=== PATIENT | female | born 1950 | race Caucasian/White ===

== ENCOUNTER 2016-07-20 15:01 | Emergency (ER) | payer OTHER ==
[~2016-07-20 15:01] MED LIST: CELEBREX200 MG PO; IBUPROFEN200 M1 PO; LEVAQUIN500 MG PO; NICOTINE T21 MG/24 H TOP; TYLENOL325 MG PO; ULTRAM EQIVALEN50 MG PO
--- NOTE | 2016-07-20 18:40 | ED ORDER SUMMARY ---
..... Patient: BISHNU MIRANDA OrderSheet [facility] VisitID: [id number] [place] [address] 66y, F Registration Date/Time: 07/20/2016 ORDER SHEET Weight: 71.6 kg (stated) Allergies: No Known Drug Allergy GENERAL ORDERS: BMP Urgent (16:36 07/20/2016 EInderbitzen R.N. verbal order read back to Aimee Pedro) (Cancelled: Physician Order16:38 EInderbitzen R.N.) Type & Screen Urgent (16:36 07/20/2016 EInderbitzen R.N. verbal order read back to Aimee Pedro) (Ack 16:44 IAouse ER Tech1) (17:27 IAouse ER Tech1) PT with INR Urgent (16:36 07/20/2016 EInderbitzen R.N. verbal order read back to Aimee Pedro) (Ack 16:44 IAouse ER Tech1) (17:27 NHouse ER Tech1) CMP Urgent (16:38 07/20/2016 EInderbitzen R.N. verbal order read back to Aimee Pedro) (Ack 16:44 IAouse ER Tech1) (17:27 NHouse ER Tech1) Liver Function Panel Urgent (16:38 07/20/2016 EInderbitzen R.N. verbal order read back to Aimee Pedro) (16:43 Aimee Pedro) (Cancelled: Physician Order16:43 Aimee Pedro) (Ack 16:44 IAouse ER Tech1) CBC w Diff Urgent (16:44 07/20/2016 Aimee Pedro) (Ack 16:46 IAouse ER Tech1) (17:27 NHouse ER Tech1) MEDICATION ORDERS: Vit K Subcut 5 mg (NOW) (17:39 07/20/2016 Aimee Pedro) (17:50 EInderbitzen R.N.) IV FLUIDS: IV Saline Lock (16:36 07/20/2016 EInderbitzen R.N. verbal order read back to Aimee Pedro) (16:53 EInderbitzen R.N.) ORDER SHEET NOTES: [Electronically signed by Sera Merrill R.N. (:07/20/2016)] [Electronically signed by Max Barger Dr. (22:18 07/20/2016)] [Electronically locked/signed by Sera Merrill R.N. (:07/20/2016)]
--- NOTE | 2016-07-20 18:40 | ED CLINICAL REPORT ---
Clinical Report - Physicians/[facility] [address] [place] [address] 07/20/2016 15:02 Patient: BISHNU MIRANDA Time Seen: 16:42; initial patient contact. Arrived- By private vehicle. Historian- patient. HISTORY OF PRESENT ILLNESS Chief Complaint: ABNORMAL INR. ( Called by PCP last night, INR > 13. Was started on Coumadin last month for LLE DVT.). At its maximum, severity described as severe. When seen in the E.D., severity described as severe. Modifying factors. Not worsened by anything. Not relieved by anything. This started last night and is still present. No loss of appetite, weight loss, headache or visual disturbance. Similar symptoms previously: None. Recent medical care: Not recently seen/assessed. REVIEW OF SYSTEMS No fever or chills. All systems otherwise negative, except as recorded above. PAST HISTORY Pleurisy. Tendonitis. Meningitis. Lung mass, not cancer. DVT SURGERIES: Appendectomy. Tonsillectomy. SOCIAL HISTORY Current every day smoker. No alcohol use or drug use. ADDITIONAL NOTES The nursing notes have been reviewed with agreement regarding the chief complaint, PMH and patient medications and allergies. PHYSICAL EXAM Vital Signs: 07/20/2016 15:55 BP: 104/57. HR: 103. RR: 18. O2 saturation: 97%. Temp: 98.2 F. Pain level now: 0/10. Have been reviewed. Hypotensive. Tachycardic. Respiratory rate normal. Temperature normal. Oxygen saturation normal. Appearance: Alert. No acute distress. Eyes: Pupils equal, round and reactive to light. Eyes normal inspection. ENT: Pharynx normal. CVS: Normal heart rate and rhythm. Heart sounds normal. Respiratory: No respiratory distress. Breath sounds normal. Abdomen: No visible injury. Soft and nontender. Bowel sounds normal. Skin: Skin warm and dry. Normal skin color. Extremities: No calf tenderness. No lower extremity edema. Neuro: Oriented X 3. No motor deficit. LABS, X-RAYS, AND EKG Laboratory Tests: CBC w Diff: (MP: 07/20/2016 16:45) ( Mscvd 07/20/2016 16:57) Final results Test Result Flag Units (Reference) WHITE BLOOD COUNT 9.8 K/uL (4.5-11.5) RED BLOOD COUNT 5.05 M/uL (4.00-5.20) HEMOGLOBIN 15.3 gm/dL (12.0-16.0) HEMATOCRIT 46.8 H % (36.0-46.0) MEAN CELL VOLUME 93 fL (80-100) MEAN CORPUSCULAR HGB 30 pg (26-34) MEAN CORPUSCULAR HGB CONC 33 g/dL (31-37) RED CELL DISTRIBUTION WIDTH 13.5 % (11.6-14.8) PLATELET COUNT 424 H K/uL (150-400) NEUTROPHIL % 73.4 % (50-75) LYMPH % 16.5 L % (25-40) MONO % 8.4 % (3-14) EOSINOPHIL % 1.1 % (0-4) BASOPHIL % 0.6 % (0-2) PT with INR: (MP: 07/20/2016 16:45) ( MsgRcvd 07/20/2016 17:26) Final results Test Result Flag Units (Reference) INR 14.1 *H (0.8-1.2) CRITICAL RESULTS CALLEDCalled to Hernandez MEHTA 07/20/16 1725Were 2 patient identifiers used? YWas the result read back? YLow Intensity Therapy: INR 1.5-2.0 PT range 18.5-23.1Mod.Intensity Therapy: INR 2.0-3.0 PT range 23.1-31.5High Intensity Therapy: INR 2.5-3.5 PT range 27.4-35.5High Intensity Therapy 2: INR 3.0-4.0 PT range 31.5-39.3 CMP: (MP: 07/20/2016 16:45) ( MsgRcvd 07/20/2016 17:18) Final results Test Result Flag Units (Reference) GLUCOSE 89 mg/dL (70-110) BUN 9 mg/dL (7-18) CREATININE 0.7 mg/dL (0.6-1.3) Estimated GFR >60 mL/min Estimated GFR- >60 mL/min Note: Persistent reduction over 3 months in eGFR<60 mL/min/1.73 m2 defines CKD. Patients with eGFR values>=60 mL/min/1.73 m2 may also have CKD if evidence ofpersistent proteinuria. Additional information may be foundat www.kidney.org. SODIUM 137 mmol/L (136-145) POTASSIUM 4.2 mmol/L (3.5-5.1) CHLORIDE 99 mmol/L (98-107) CARBON DIOXIDE 31 mmol/L (21-32) CALCIUM 9.4 mg/dL (8.5-10.1) TOTAL PROTEIN 8.0 g/dL (6.4-8.2) ALBUMIN 2.9 L g/dL (3.3-5.0) BILIRUBIN, TOTAL 0.5 mg/dL (0.0-1.0) ALKALINE PHOSPHATASE 115 U/L (46-116) AST (SGOT) 37 U/L (15-37) ALT (SGPT) 23 U/L (12-78) Type & Screen: (MP: 07/20/2016 16:45) ( MsgRcvd 07/20/2016 18:19) Final results Test Result Flag Units (Reference) PATIENT BLOOD TYPE A Positive Above is a corrected result. Previously reported on ( MsgRcvd 07/20/2016 18:03) as: PATIENT BLOOD TYPE A Positive ANTIBODY SCREEN NEGATIVE . PROGRESS AND PROCEDURES Course of Care: 07/20/2016 17:00 BP: 106/74. HR: 88. RR: 16. O2 saturation: 100%. Pain level now: 0/10. Vital Signs: have been reviewed as normal. Disposition: Discharged home in good condition. Condition: good. CLINICAL IMPRESSION Oral anticoagulation therapy with high INR. INSTRUCTIONS Your Current Medications: STOP TAKING THE FOLLOWING MEDICATIONS: Warfarin Sodium Oral. CONTINUE TAKING THE FOLLOWING MEDICATIONS: HYDROcodone Bitartrate ER Oral. Tramadol HCL Oral. Follow-up: Follow up with your doctor tomorrow. Call for an appointment. Screening today revealed the patient's blood pressure to be in the normal range. (Electronically signed by Max Barger Dr. 07/20/2016 22:18)
--- NOTE | 2016-07-20 18:40 | ED ORDER SUMMARY ---
..... Patient: BISHNU MIRANDA OrderSheet [facility] VisitID: [id number] [place] [address] 66y, F Registration Date/Time: 07/20/2016 ORDER SHEET Weight: 71.6 kg (stated) Allergies: No Known Drug Allergy GENERAL ORDERS: BMP Urgent (16:36 07/20/2016 EInderbitzen R.N. verbal order read back to Aimee Pedro) (Cancelled: Physician Order16:38 EInderbitzen R.N.) Type & Screen Urgent (16:36 07/20/2016 EInderbitzen R.N. verbal order read back to Aimee Pedro) (Ack 16:44 TNouse ER Tech1) (17:27 TNouse ER Tech1) PT with INR Urgent (16:36 07/20/2016 EInderbitzen R.N. verbal order read back to Aimee Pedro) (Ack 16:44 TNouse ER Tech1) (17:27 NHouse ER Tech1) CMP Urgent (16:38 07/20/2016 EInderbitzen R.N. verbal order read back to Aimee Pedro) (Ack 16:44 TNouse ER Tech1) (17:27 NHouse ER Tech1) Liver Function Panel Urgent (16:38 07/20/2016 EInderbitzen R.N. verbal order read back to Aimee Pedro) (16:43 Aimee Pedro) (Cancelled: Physician Order16:43 Aimee Pedro) (Ack 16:44 TNouse ER Tech1) CBC w Diff Urgent (16:44 07/20/2016 Aimee Pedro) (Ack 16:46 TNouse ER Tech1) (17:27 NHouse ER Tech1) MEDICATION ORDERS: Vit K Subcut 5 mg (NOW) (17:39 07/20/2016 Aimee Pedro) (17:50 EInderbitzen R.N.) IV FLUIDS: IV Saline Lock (16:36 07/20/2016 EInderbitzen R.N. verbal order read back to Aimee Pedro) (16:53 EInderbitzen R.N.) ORDER SHEET NOTES: [Electronically signed by Sera Merrill R.N. (:07/20/2016)] [Electronically signed by Max Barger Dr. (22:18 07/20/2016)] [Electronically locked/signed by Sera Merrill R.N. (:07/20/2016)]
--- NOTE | 2016-07-20 18:40 | ED NURSING NOTES ---
Clinical Report - Nurses [facility] [address] [place] [address] 07/20/2016 15:02 Patient: BISHNU MIRANDA TRIAGE Triage time 15:55 Jul 20 2016. Acuity: LEVEL 3. Chief Complaint: (inr greater than 13). 16:00 07/20/16. SEPSIS SCREEN: Sepsis Screen: negative. Negative (no infection suspected/documented). --16:02 Sera Merrill R.N. 15:55 07/20/16. BP: 104/57. HR: 103. RR: 18. O2 saturation: 97%. Temp: 98.2 F. Pain level now: 0/10. --16:02 Sera Merrill R.N. Weight: 71.6 kg stated. Height/Length: 66 inches Per Patient. BMI: 25.5. --15:54 Sera Merrill R.N. Medications Tramadol HCL Oral. --16:01 Sera Merrill R.N. HYDROcodone Bitartrate ER Oral. --16:01 Sera Merrill R.N. Warfarin Sodium Oral. --16:02 Sera Merrill R.N. Allergies No Known Drug Allergy. --16:00 Sera Merrill R.N. Medication/allergy information source: the patient. --16:02 Sera Merrill R.N. History Arrived by private vehicle. Historian: patient. Accompanied by family. This started today. ( last dose of coumadin last night. started coumadin 07/05 for DVT. Initally on Lovenox.). Treatment PHARMACOVIGILANCE SPECIALIST: None. PAST MEDICAL HX: Immunizations: seasonal influenza. Has not received pneumonia vaccine. SOCIAL HX: Heavy tobacco smoker (cigarette)- less than 1 pack per day. No alcohol use or drug use. No infectious disease exposure. ABUSE ASSESSMENT: No report of abuse. SELF HARM ASSESSMENT: A self harm assessment was performed. The patient answered "no" to the question "Have you recently felt down, depressed, or hopeless?", "Have you noticed less interest or pleasure in doing things?", "Do you have thoughts of harming or killing yourself?", "Are you here because you tried to hurt yourself?", "Have you ever tried to hurt yourself before today?", "Have you recently had thoughts about harming or killing others?" and "Do you have any dangerous items in your possession?". --16:02 Sera Merrill R.N. PROBLEMS: Pleurisy. Tendonitis. Meningitis. --16:00 Sera Merrill R.N. Lung mass, not cancer. --16:02 Sera Merrill R.N. ADDITIONAL SURGERIES: Appendectomy. Tonsillectomy. --16:00 Sera Merrill R.N. Interventions ID band on patient. --16:02 Sera Merrill R.N. PHYSICAL ASSESSMENT 15:55 07/20/16. Ambulatory to room. GENERAL / NEURO / PSYCH: Alert. Oriented X 4. Appears in no acute distress. HEENT: Pupils equal, round and reactive to light. No facial asymmetry noted. Mucous membranes are pink. RESPIRATORY: Respirations not labored. Breath sounds within normal limits. CVS: Pulses within normal limits. GI / : Abdomen soft and nontender and normal bowel sounds. SKIN: Skin intact. Skin is warm and dry. Normal skin turgor. --16:52 Sera Merrill R.N. NURSING PROGRESS NOTES 15:55 07/20/16. The initial plan of care for this patient includes an assessment with efforts to address additional testing; educational needs of the patient regarding the patient's medications. This plan of care was discussed with the patient. Reassurance given. Two patient identifiers checked. Call light placed in reach. Side rails up x 1. Bed placed in lowest position. Brakes of bed on. Patient ready for evaluation. --16:52 Sera Merrill R.N. 16:45 07/20/2016 Site #1 started via IV in the left hand with an 20g angiocath, with aseptic technique and good blood return; one attempt. Blood drawn: rainbow set. Labeled in the presence of the patient and sent to the lab. Saline lock flushed with 10 mL saline. --16:51 Sera Merrill R.N. 17:26 07/20/16. Critical value relayed to ED by Barron. Critical value received by Terence. INR: 14.1. Critical value read back. Verified lab result and patient ID. ED physician notifed of critical value. Orders were received. --17:26 Sera Merrill R.N. 17:50 07/20/2016 Vit K (Vitamin K1) Subcutaneous 5 mg given. Given in the right upper arm. Allergies verified and confirmed 5 rights. --17:50 Sera Merrill R.N. 18:49 07/20/16. The patient is calm. Overall patient status is the same- she states feels the same. Patient waiting for disposition. --18:49 Sera Merrill R.N. DISPOSITION / DISCHARGE 18:55 07/20/2016 Site #1 removed upon admission. Catheter intact. Pressure dressing applied. --18:59 Sera Merrill R.N. 18:57 07/20/16. Condition at departure: improved and stable. The goals identified in the patient's plan of care were met. No learning barriers present. Discharge instructions provided and reviewed with the patient. Reviewed warnings (STOP COUMADIN). Treatments reviewed (Bleeding precautions). Reviewed referral to a primary care physician for followup. Patient verbalized understanding. Written instructions provided in Cymro. The patient was discharged home and accompanied by family. She left the Emergency Department ambulatory and via private vehicle. Family member driving. FALL RISK ASSESSMENT: Fall risk assessment completed. No fall risk identified. --19:00 Sera Merrill R.N. 18:00 07/20/16. BP: 106/64. HR: 88. RR: 16. O2 saturation: 100%. Pain level now: 0/10. 17:00 07/20/16. BP: 106/74. HR: 88. RR: 16. O2 saturation: 100%. Pain level now: 0. 15:55 07/20/16. BP: 104/57. HR: 103. RR: 18. O2 saturation: 97%. Temp: 98.2 F. Pain level now: 010. --19:00 Sera Merrill R.N. Departure time: 19:00 Jul 20 2016. --19:00 Sera Merrill R.N. Locked/Released at 07/20/2016 19:01 by Sera eMrrill R.N.
--- NOTE | 2016-07-20 22:19 | ED MED RECONCILIATION SUMMARY ---
Patient: RUBENBISHNU Medication Reconciliation Report [facility] VisitID: [id number] [address] [place] [address] 66y, F Registration Date/Time: 07/20/2016 Weight: 71.6 kg Height/Length: 66 in. BMI: 25.5 ALLERGIES: No Known Drug Allergy The patient's Home Medications are listed below: STOP TAKING THE FOLLOWING MEDICATIONS: Warfarin Sodium Oral CONTINUE TAKING THE FOLLOWING MEDICATIONS: HYDROcodone Bitartrate ER Oral Tramadol HCL Oral The source(s) of the original Home Medication information: patient The following Medications were given to the patient in the Emergency Department: Vit K [Subcutaneous] Subcutaneous 5 mg, administered: 07/20/2016 5:50:00 PM The following Medications were prescribed to the patient: None.
--- NOTE | 2016-07-20 22:19 | ED MAR SUMMARY ---
..... Medication Administration Record [facility] [address] [place] [address] Patient: BISHNU MIRANDA Visit ID: [id number] 66y, F Weight: 71.6 kg Height/Length: 66 in BMI: 25.5 ALLERGIES: No Known Drug Allergy Given 17:50 07/20/2016 Sera Merrill R.N. Medication Administered: VIT K [SUBCUTANEOUS] (VITAMIN K1), Dose: 5 mg Subcutaneous. Medication Ordered: Vit K Subcut 5 mg (NOW).
--- NOTE | 2016-07-20 22:19 | ED MED RECONCILIATION SUMMARY ---
Patient: RUBENBISHNU Medication Reconciliation Report [facility] VisitID: [id number] [address] [place] [address] 66y, F Registration Date/Time: 07/20/2016 Weight: 71.6 kg Height/Length: 66 in. BMI: 25.5 ALLERGIES: No Known Drug Allergy The patient's Home Medications are listed below: STOP TAKING THE FOLLOWING MEDICATIONS: Warfarin Sodium Oral CONTINUE TAKING THE FOLLOWING MEDICATIONS: HYDROcodone Bitartrate ER Oral Tramadol HCL Oral The source(s) of the original Home Medication information: patient The following Medications were given to the patient in the Emergency Department: Vit K [Subcutaneous] Subcutaneous 5 mg, administered: 07/20/2016 5:50:00 PM The following Medications were prescribed to the patient: None.
--- NOTE | 2016-07-20 22:19 | ED DISCHARGE INSTRUCTIONS ---
Patient: BISHNU MIRANDA General Instructions [facility] VisitID: [id number] [address] [place] [address] 66y, F Registration Date/Time: 07/20/2016 Oral anticoagulation therapy with high INR. INSTRUCTIONS Your Current Medications: STOP TAKING THE FOLLOWING MEDICATIONS: Warfarin Sodium Oral. CONTINUE TAKING THE FOLLOWING MEDICATIONS: HYDROcodone Bitartrate ER Oral. Tramadol HCL Oral. Follow-up: Follow up with your doctor tomorrow. Call for an appointment. Screening today revealed the patient's blood pressure to be in the normal range. (Electronically signed by Max Barger Dr. 07/20/2016 22:18)
--- NOTE | 2016-07-20 22:19 | ED MAR SUMMARY ---
..... Medication Administration Record [facility] [address] [place] [address] Patient: BISHNU MIRANDA Visit ID: [id number] 66y, F Weight: 71.6 kg Height/Length: 66 in BMI: 25.5 ALLERGIES: No Known Drug Allergy Given 17:50 07/20/2016 Sera Merrill R.N. Medication Administered: VIT K [SUBCUTANEOUS] (VITAMIN K1), Dose: 5 mg Subcutaneous. Medication Ordered: Vit K Subcut 5 mg (NOW).
--- NOTE | 2016-07-20 22:19 | ED DISCHARGE INSTRUCTIONS ---
Patient: BISHNU MIRANDA General Instructions [facility] VisitID: [id number] [address] [place] [address] 66y, F Registration Date/Time: 07/20/2016 Oral anticoagulation therapy with high INR. INSTRUCTIONS Your Current Medications: STOP TAKING THE FOLLOWING MEDICATIONS: Warfarin Sodium Oral. CONTINUE TAKING THE FOLLOWING MEDICATIONS: HYDROcodone Bitartrate ER Oral. Tramadol HCL Oral. Follow-up: Follow up with your doctor tomorrow. Call for an appointment. Screening today revealed the patient's blood pressure to be in the normal range. (Electronically signed by Max Barger Dr. 07/20/2016 22:18)
== END 2016-07-20 19:00 | disposition home or self-care (01) ==
LOC: ED SRH 15:01
DX: R79.1 Abnormal coagulation profile (principal); Z86.718 Personal history of other venous thrombosis and embolism; Z79.01 Long term (current) use of anticoagulants; Z79.891 Long term (current) use of opiate analgesic; F17.210 Nicotine dependence, cigarettes, uncomplicated
CPT/HCPCS: 90001; 90100; 90155; 91004; 94060; 95059